=== PATIENT | female | born 1955 | race Caucasian/White ===

== ENCOUNTER 2017-08-05 14:43 | Emergency (ER) | payer BC, MEDICARE | END 2017-08-05 16:15 | disposition home or self-care (01) | LOC: ER1 14:43 | DX: S46.911A Strain of unspecified muscle, fascia and tendon at shoulder and upper arm level, right arm, initial encounter (principal); Z88.5 Allergy status to narcotic agent; Z88.8 Allergy status to other drugs, medicaments and biological substances; W07.XXXA Fall from chair, initial encounter; Y93.89 Activity, other specified; Y92.009 Unspecified place in unspecified non-institutional (private) residence as the place of occurrence of the external cause | CPT/HCPCS: 73030; 99283 ==

== ENCOUNTER → 2021-12-18 | Outpatient (CLI) | payer MEDICARE ==
[~2021-12-18] MED LIST: FLAGYL500 MG PO; VIBRAMYCIN100 MG PO
== END ==
LOC: KOH-I 11:05
DX: R05.9 Cough, unspecified (principal)
CPT/HCPCS: 71046

== ENCOUNTER → 2022-01-06 | Outpatient (CLI) | payer MEDICARE | LOC: KOH-I 16:38 | DX: K59.00 Constipation, unspecified (principal) | CPT/HCPCS: 74018 ==

== ENCOUNTER → 2022-02-23 | Outpatient (CLI) | payer MEDICARE | LOC: EXRD 15:15 | DX: J45.50 Severe persistent asthma, uncomplicated (principal) | CPT/HCPCS: 94010 ==

== ENCOUNTER → 2022-03-06 | Outpatient (CLI) | payer MEDICARE | LOC: US 09:55 → EXRD 09:55 | DX: K76.0 Fatty (change of) liver, not elsewhere classified (principal) | CPT/HCPCS: 76700 ==